=== PATIENT | male | born 1955 ===

== ENCOUNTER 2023-02-22 13:45 | Day surgery (SDC) | payer OTHER ==
[~2023-02-22] VITALS: Ht 182.9 cm; Wt 85.1 kg
[2023-02-22] MEDS ORDERED: FENO160 (14:16)
[2023-02-22] MEDS ORDERED: BRINTELLIX10 MG (14:16)
[2023-02-22 17:22] VITALS: BP 104/76
== END 2023-02-22 17:10 | disposition home or self-care (01) ==
LOC: ORSCSDS 13:45
PROVIDERS: Internal Medicine Gastroenterology
PROC: 0DBK8ZX Excision of Ascending Colon, Via Natural or Artificial Opening Endoscopic, Diagnostic (ICD-10-PCS; principal; 2023-02-22 15:15)
PROC: 0DBN8ZX Excision of Sigmoid Colon, Via Natural or Artificial Opening Endoscopic, Diagnostic (ICD-10-PCS; principal; 2023-02-22 15:15)
PROC: 0DBM8ZX Excision of Descending Colon, Via Natural or Artificial Opening Endoscopic, Diagnostic (ICD-10-PCS; principal; 2023-02-22 15:15)
PROC: 0DBP8ZX Excision of Rectum, Via Natural or Artificial Opening Endoscopic, Diagnostic (ICD-10-PCS; principal; 2023-02-22 15:15)
DX: R10.31 Right lower quadrant pain (principal); K59.09 Other constipation; D12.2 Benign neoplasm of ascending colon; D12.8 Benign neoplasm of rectum; D12.5 Benign neoplasm of sigmoid colon; D12.4 Benign neoplasm of descending colon; K57.30 Diverticulosis of large intestine without perforation or abscess without bleeding; Z87.891 Personal history of nicotine dependence
CPT/HCPCS: 88305; J0461; J2001; J2405; J2704; J7120; Q9968

== ENCOUNTER 2023-09-26 07:47 | Day surgery (SDC) | payer OTHER ==
[~2023-09-26] VITALS: Ht 180 cm; Wt 86.2 kg
[2023-09-26] VITALS (8 sets, daily range): BP systolic 122–137; BP diastolic 79–96
[~2023-09-26 07:47] MED LIST: BRINTELLIX10 MG; FENO160
--- NOTE | 2023-09-26 09:05 | NUR ---
History, Chart, Medications and Allergies reviewed before start of procedure. Ambulatory in Day Surgery. Pre-Op teaching done. Pt verbalizes understanding. Patient confirms NPO status and agrees with scheduled surgery. Patient reports completing Chlorhexadine shower X2 prior to admission to hospital. Surgical site prepped with 2% Chlorhexidine cloth wipe. Lungs clear T/O to Auscultation. Patient States Post-Procedure ride home has been arranged.
--- NOTE | 2023-09-26 11:09 | NUR ---
PT DECLINES ICE PACK, STATES HE HAS ONE AT HOME HE WILL USE. Discharge instructions reviewed with patient. Patient verbalizes understanding. Copy given to patient to take home. Patient States Post-Procedure ride home has been arranged.
--- NOTE | 2023-09-26 11:18 | NUR ---
PT TOLERATING PO FLUIDS AND CRACKERS WELL.
--- NOTE | 2023-09-26 11:30 | NUR ---
Patient up to Ambulate independently. Gait steady. Discharged via wheelchair to private car for ride home.
== END 2023-09-26 11:35 | disposition home or self-care (01) ==
LOC: ORSCMMR 07:47 → ORD 09:00 → ORSCMMR 11:35
PROVIDERS: Surgery
PROC: 0WUF4JZ Supplement Abdominal Wall with Synthetic Substitute, Percutaneous Endoscopic Approach (ICD-10-PCS; principal; 2023-09-26 09:00)
DX: K43.6 Other and unspecified ventral hernia with obstruction, without gangrene (principal); F17.210 Nicotine dependence, cigarettes, uncomplicated; F32.A Depression, unspecified; N40.0 Benign prostatic hyperplasia without lower urinary tract symptoms; Z79.899 Other long term (current) drug therapy
CPT/HCPCS: 82947; A9270; C1781; J0690; J1100; J1885; J2405; J2704; J3010; J7120